=== PATIENT | female | born 1965 | race Caucasian/White ===

== ENCOUNTER 2016-11-02 05:08 | Inpatient (IN) | payer MEDICAID, OTHER ==
[2016-11-02] VITALS (20 sets, daily range): BP systolic 119–220; BP diastolic 59–117; PULSE 73–120; RESP 16–28; TEMP 97.7–97.9; O2SAT 96–100
[~2016-11-02] VITALS: Ht 162.6 cm; Wt 72.0 kg
[~2016-11-02 05:08] MED LIST: ALBU17I INH; ALBU2.5I INH; CARD30TA PO; LEVA750T PO; MONT10TA2 PO; PRED10 PO
--- NOTE | 2016-11-02 05:23 | PD ---
HPI Chief Complaint: Respiratory Symptoms Time Seen by Provider: 05:11 Travel History International Travel<30 days: No Contact w/Intl Traveler<30days: No Traveled to known affect area: No History of Present Illness HPI The patient is a 51-year-old female who presents emergency department via EMS for shortness of breath. The patient states she developed sudden onset of shortness of breath approximately 3 hours prior to arrival. The patient states she has a long-standing history of asthma, is been intubated approximately 4 times, was last admitted for asthma 5 years ago. The patient states she had prednisone at home earlier today, has some shortness of breath, therefore, took prednisone 20 mg orally. Patient is also been using nebulizers at home, however, her symptoms are progressing. EMS provided the patient Solu- Medrol 125 mg intravenously and albuterol nebulizers 3 times prior to arrival. However, patient continues complaining of shortness of breath, chest tightness, and had noticeable retractions. The patient does not currently have a primary physician. Patient states she lost her physician after they took her disability for asthma away. The patient does complain of chest tightness, denies any chest pain. The patient denies any nausea, vomiting, Toradol pain. She denies any associated fever, chills, or sweats. Patient does have a history of asthma was taking Benicar, however, no longer takes her medications could she does not have a physician. The patient quit smoking 5 years ago. PFSH Past Medical History Narrative Medical Hypertension, asthma Past Surgical History Narrative Surgical Partial hysterectomy Social History Alcohol Use: No Tobacco Use: No (quit 5 years ago) Substance Use: No Allergies-Medications (Allergen,Severity, Reaction): Coded Allergies: Penicillin (Verified Allergy, Severe, 11/02/16) Reported Meds & Prescriptions Reported Meds & Active Scripts Active Reported Resp: Albuterol 2.5 Mg/3 Ml Neb (Albuterol Sulfate) 2.5 Mg/3 Ml Nebu 2.5 Mg INH Q4HPRN PRN SOB Levaquin 750 Mg Tab (Levofloxacin) 750 Mg Tab 750 Mg PO DAILY Deltasone 10 Mg Tab (Prednisone) 10 Mg Tab 10 Mg PO DAILY 40MG PO X2 DAYS, 20MG X2 DAYS, 10MG X2 DAYS Singulair (Montelukast Sodium) 10 Mg Tab 10 Mg PO DAILY Proventil Mdi (Albuterol Sulfate) 17 Gm Aero 2 Puff INH Q4HPRN PRN SOB Cardizem (Diltiazem HCl) 30 Mg Tab 30 Mg PO Q8 Review of Systems Except as stated in HPI: all other systems reviewed are Neg General / Constitutional: No: Fever, Chills HENT: No: Lightheadedness Cardiovascular: No: Chest Pain or Discomfort Respiratory: Positive: Shortness of Breath, Wheezing Gastrointestinal: No: Nausea, Vomiting, Abdominal Pain Musculoskeletal: No: Weakness Neurologic: No: Dizziness Physical Exam Narrative GENERAL: Awake, alert, 51-year-old female who appears her stated age and is in moderate respiratory distress with noticeable retractions. SKIN: Warm and dry. HEAD: Atraumatic. Normocephalic. EYES: Pupils equal and round. No scleral icterus. No injection or drainage. ENT: Mild nasal flaring. NECK: Trachea midline. No JVD. CARDIOVASCULAR: Regular, tachycardic with a heart rate of 120. RESPIRATORY: Tachypnea with a respiratory rate of 26. Noticeable supraclavicular retractions. Audible wheezing all 4 lung duenas. GASTROINTESTINAL: Abdomen soft, non-tender, nondistended. No rebound tenderness. MUSCULOSKELETAL: No obvious deformities. No clubbing. No cyanosis. No edema. NEUROLOGICAL: Awake and alert. No obvious cranial nerve deficits. Motor grossly within normal limits. Normal speech. PSYCHIATRIC: Appropriate mood and affect; insight and judgment normal. Data Data Last Documented VS Vital Signs Date Time Temp Pulse Resp B/P Pulse Ox O2 Delivery O2 Flow Rate FiO2 11/02/16 05:45 108 24 139/100 100 BiPAP 40 11/02/16 05:11 97.7 Orders Complete Blood Count With Diff (11/02/16 05:16) Comprehensive Metabolic Panel (11/02/16 05:16) B-Type Natriuretic Peptide (11/02/16 05:16) Magnesium (Mg) (11/02/16 05:16) Iv Access Insert/Monitor (11/02/16 05:16) Electrocardiogram (11/02/16 05:16) Ecg Monitoring (11/02/16 05:16) Oximetry (11/02/16 05:16) Oxygen Administration (11/02/16 05:16) Chest, Single Ap (11/02/16 05:16) Sodium Chloride 0.9% Flush (Ns Flush) (11/02/16 05:30) Albuterol-Ipratropium Neb (Duoneb Neb) (11/02/16 05:30) Resp Bipap / Cpap Non Invas Vt (11/02/16 05:16) Resp Blood Gas Venous (11/02/16 ) Enalaprilat Inj (Vasotec Inj) (11/02/16 05:30) Sodium Chlorid 0.9% 500 Ml Inj (Ns 500 M (11/02/16 05:30) Blood Gas Venous (Vbg) (11/02/16 05:30) Labs Laboratory Tests Test 11/02/16 11/02/16 05:20 05:30 White Blood Count 15.8 TH/MM3 Red Blood Count 5.10 MIL/MM3 Hemoglobin 15.4 GM/DL Hematocrit 45.8 % Mean Corpuscular Volume 89.9 FL Mean Corpuscular Hemoglobin 30.3 PG Mean Corpuscular Hemoglobin 33.7 % Concent Red Cell Distribution Width 13.4 % Platelet Count 302 TH/MM3 Mean Platelet Volume 8.3 FL Neutrophils (%) (Auto) 53.5 % Lymphocytes (%) (Auto) 32.6 % Monocytes (%) (Auto) 6.5 % Eosinophils (%) (Auto) 7.1 % Basophils (%) (Auto) 0.3 % Neutrophils # (Auto) 8.4 TH/MM3 Lymphocytes # (Auto) 5.1 TH/MM3 Monocytes # (Auto) 1.0 TH/MM3 Eosinophils # (Auto) 1.1 TH/MM3 Basophils # (Auto) 0.1 TH/MM3 CBC Comment AUTO DIFF Differential Total Cells 100 Counted Neutrophils % (Manual) 64 % Lymphocytes % 21 % Monocytes % 5 % Eosinophils % 8 % Neutrophils # (Manual) 10.4 TH/MM3 Metamyelocytes 2 % Differential Comment FINAL DIFF MANUAL Platelet Estimate NORMAL Platelet Morphology Comment NORMAL Red Cell Morphology Comment NORMAL Blood Gas Puncture Site IV LINE Blood Gas Patient Temperature 98.6 Venous Blood pH 7.42 Venous Blood Partial Pressure 40 mmHg CO2 Venous Blood Partial Pressure 75 mmHg O2 Venous Blood HCO3 25 mmol/L Venous Blood Oxygen Saturation 92 % Venous Blood Oxygen Content 20.2 Vol % Venous Blood Base Excess 0.8 mmol/L Oxygen Delivery Device BiPAP Blood Gas Ventilator Setting IPAP12/EPAP5 Blood Gas Inspired Oxygen 40 % MDM Medical Decision Making Medical Screen Exam Complete: Yes Emergency Medical Condition: Yes Medical Record Reviewed: Yes Interpretation(s) EKG reveals sinus tachycardia with a heart rate 111. Chest x-ray reveals normal examination Laboratory Tests Test 11/02/16 11/02/16 05:20 05:30 White Blood Count 15.8 TH/MM3 Red Blood Count 5.10 MIL/MM3 Hemoglobin 15.4 GM/DL Hematocrit 45.8 % Mean Corpuscular Volume 89.9 FL Mean Corpuscular Hemoglobin 30.3 PG Mean Corpuscular Hemoglobin 33.7 % Concent Red Cell Distribution Width 13.4 % Platelet Count 302 TH/MM3 Mean Platelet Volume 8.3 FL Neutrophils (%) (Auto) 53.5 % Lymphocytes (%) (Auto) 32.6 % Monocytes (%) (Auto) 6.5 % Eosinophils (%) (Auto) 7.1 % Basophils (%) (Auto) 0.3 % Neutrophils # (Auto) 8.4 TH/MM3 Lymphocytes # (Auto) 5.1 TH/MM3 Monocytes # (Auto) 1.0 TH/MM3 Eosinophils # (Auto) 1.1 TH/MM3 Basophils # (Auto) 0.1 TH/MM3 CBC Comment AUTO DIFF Differential Total Cells 100 Counted Neutrophils % (Manual) 64 % Lymphocytes % 21 % Monocytes % 5 % Eosinophils % 8 % Neutrophils # (Manual) 10.4 TH/MM3 Metamyelocytes 2 % Differential Comment FINAL DIFF MANUAL Platelet Estimate NORMAL Platelet Morphology Comment NORMAL Red Cell Morphology Comment NORMAL Blood Gas Puncture Site IV LINE Blood Gas Patient Temperature 98.6 Venous Blood pH 7.42 Venous Blood Partial Pressure 40 mmHg CO2 Venous Blood Partial Pressure 75 mmHg O2 Venous Blood HCO3 25 mmol/L Venous Blood Oxygen Saturation 92 % Venous Blood Oxygen Content 20.2 Vol % Venous Blood Base Excess 0.8 mmol/L Oxygen Delivery Device BiPAP Blood Gas Ventilator Setting IPAP12/EPAP5 Blood Gas Inspired Oxygen 40 % Differential Diagnosis Differential diagnoses includes asthma exacerbation, pneumothorax, pleural effusion, pulmonary embolism, pneumonia, bronchitis, ACS. Narrative Course IV was established, labs are drawn and sent, and the patient was placed on cardiac telemetry monitoring and continuous pulse oximetry monitoring. The patient was placed on BiPAP 12/5 at 40%. The patient received Solu-Medrol and 3 albuterol nebulizers prior to arrival, therefore, was administered 2 more duo nebs. Patient had noticeable tachypnea, retractions, therefore, was placed on BiPAP. The patient is at high risk secondary to previous four intubations. The patient was placed on BiPAP, has significant improvement of her symptoms. VBG is unremarkable, no obvious PCO2 retention, her PCO2 is 39.5. Patient will be admitted to [facility] on BiPAP. The on-call medical service was paged for remission. The patient's white count was mildly elevated, however, the patient is afebrile. Laboratory states that the patient's CMP was hemolyzed, therefore , was a re-collect. A call was placed to the on-call medical service for admission. The patient will be admitted. Critical Care Narrative Aggregate critical care time was 35 minutes. Time to perform other separately billable procedures was not included in the critical care time. My time did not include minutes spent treating any other patients simultaneously or on activities that did not directly contribute to the patient's treatment. The services I provided to this patient were to treat and/or prevent clinically significant deterioration that could result in: Anoxia, hypoxia, arrhythmia, respiratory arrest, . I provided critical care services requiring my management, as noted below: Chart data review, documentation time, medication orders and management, vital sign assessments/reviewing monitor data, ordering and reviewing lab tests, ordering and interpreting/reviewing x-rays and diagnostic studies, care of the patient and discussion of the patient with the admitting physicians. Physician Communication Physician Communication [facility] were paged for admission. I discussed the patient with Dr. Nye who agrees with admission. Diagnosis Primary Impression: Status asthmaticus Qualified Code: J45.902 - Asthma with status asthmaticus, unspecified asthma severity Admitting Information Admitting Physician Requests: Admit Condition: Stable Isaias Alexis MD Nov 02, 2016 05:23
[2016-11-02] MEDS: RESP: ALBUTEROL 2.5 MG/IPRATROPIUM 0.5 MG NEB (SCH) INH (05:29)
[2016-11-02] MEDS ORDERED: SODIUM CHLORIDE 0.9% FLUSH 5 ML FLUSH IVF PRN (05:30)
[2016-11-02] MEDS ORDERED: SODIUM CHLORID 0.9% 500 ML INJ 500 ML IV ONE (05:30)
[2016-11-02] MEDS ORDERED: ENALAPRILAT 1.25 MG/ML VIAL IV PUSH ONE (05:30)
[2016-11-02 05:41] LABS: BLOOD GAS VENOUS BASE EXCESS 0.8 mmol/L (-2-2); BLOOD GAS VENOUS HCO3 25 mmol/L (22-26); BLOOD GAS VENOUS O2 CONTENT 20.2 Vol % (9.0-17.0); BLOOD GAS VENOUS O2 HGB SAT 92 % (70-76); BLOOD GAS VENOUS PCO2 40 mmHg (44-48); BLOOD GAS VENOUS PO2 75 mmHg (35-40); BLOOD GAS VENOUS pH 7.42 (7.360-7.400); CRITICAL VALUE NO; DRAW SITE IV LINE; FIO2 40 %; OXYGEN DEVICE BiPAP; STAT YES; TEMP CORR TO 98.6; VENT SETTINGS IPAP12/EPAP5
[2016-11-02 05:57] LABS: AUTOMATED NEUTROPHIL # 8.4 TH/MM3 (1.8-7.7); BASOPHIL # 0.1 TH/MM3 (0-0.2); BASOPHIL % 0.3 % (0.0-2.0); EOSINOPHIL # 1.1 TH/MM3 (0-0.4); EOSINOPHIL % 7.1 % (0.0-4.0); HEMATOCRIT 45.8 % (35.0-46.0); LYMPH % 32.6 % (9.0-44.0); LYMPHOCYTE # 5.1 TH/MM3 (1.0-4.8); MEAN CELL VOLUME 89.9 FL (80.0-100.0); MEAN CORPUSCULAR HEMOGLOBIN 30.3 PG (27.0-34.0); MEAN CORPUSCULAR HGB CONC 33.7 % (32.0-36.0); MONO % 6.5 % (0.0-8.0); NEUT % 53.5 % (16.0-70.0); PLATELET COUNT 302 TH/MM3 (150-450); RED CELL DISTRIBUTION WIDTH 13.4 % (11.6-17.2); WHITE BLOOD COUNT 15.8 TH/MM3 (4.0-11.0)
[2016-11-02 06:01] LABS: HEMO FLAGS AUTO DIFF
[2016-11-02 06:30] LABS: EOSINOPHILS 8 % (0-4); METAMYELOCYTES 2 % (0-1); NEUTROPHIL # MANUAL DIFF 10.4 TH/MM3 (1.8-7.7); POLYS (SEG NEUTROPHILS) 64 % (16-70); WBC DIFF SAMPLE 100
[2016-11-02 06:31] LABS: PLATELET ESTIMATE SMEAR NORMAL (NORMAL); PLATELET MORPHOLOGY NORMAL (NORMAL); SCAN/DIFF FINAL DIFF MANUAL
--- NOTE | 2016-11-02 06:33 | RADRPT ---
EXAM DATE/TIME: 11/02/2016 05:55 [facility] COMPARISON: CHEST SINGLE AP, July 29, 2012, 5:36. INDICATIONS : Shortness of breath. MEDICAL HISTORY : Asthma SURGICAL HISTORY : None. ENCOUNTER: Initial ACUITY: 1 day PAIN SCORE: 0/10 LOCATION: Bilateral chest FINDINGS: A single view of the chest demonstrates the lungs to be symmetrically aerated without evidence of mas s, infiltrate or effusion. The cardiomediastinal contours are unremarkable. Osseous structures are intact. CONCLUSION: Normal examination. Kannan Ma MD on November 02, 2016 at 6:31 Board Certified Radiologist. This report was verified electronically.
[2016-11-02] MEDS ORDERED: RESP: ALBUTEROL 2.5 MG/3 ML NEB (PRN) NEB (07:00)
[2016-11-02] MEDS ORDERED: ACETAMINOPHEN/HYDROcodone 325 MG/5 MG TAB PO PRN (07:00)
[2016-11-02] MEDS ORDERED: ONDANSETRON HCL 4 MG/2 ML VIAL IVP PRN (07:00)
[2016-11-02] MEDS ORDERED: BISACODYL 10 MG SUPP PR PRN (07:00)
[2016-11-02] MEDS ORDERED: SODIUM CHLORIDE 0.9% FLUSH 5 ML FLUSH FLUSH PRN (07:00)
[2016-11-02] MEDS ORDERED: ACETAMINOPHEN 325 MG TAB PO PRN (07:00)
[2016-11-02 07:11] LABS: ALT (GPT) 24 U/L (10-53); ANION GAP 10 MEQ/L (5-15); AST (GOT) 17 U/L (15-37); BICARBONATE 25.2 MEQ/L (21.0-32.0); BLOOD UREA NITROGEN 15 MG/DL (7-18); CHLORIDE 107 MEQ/L (98-107); GLOMERULAR FILTRATION RATE 72 ML/MIN (>89); MAGNESIUM 2.1 MG/DL (1.5-2.5); POTASSIUM 3.9 MEQ/L (3.5-5.1); SODIUM (NA) 142 MEQ/L (136-145)
[2016-11-02 07:13] LABS: ALKALINE PHOSPHATASE 53 U/L (45-117); TOTAL BILIRUBIN ADULT 0.4 MG/DL (0.2-1.0)
[2016-11-02] MEDS: RESP: ALBUTEROL 2.5 MG/3 ML NEB (SCH) NEB ×4 (07:30→19:47)
[2016-11-02] MEDS: ACETAMINOPHEN/HYDROcodone 325 MG/10 MG TAB PO PRN ×2 (07:33→21:32)
--- NOTE | 2016-11-02 08:50 | HHI.HP ---
[facility] No Primary Care Physician Admission Diagnosis status asthmaticus, failed outpatient therapy Diagnoses: Chief Complaint: Shortness of breath. Travel History International Travel<30 Days: No Contact w/Intl Traveler <30 Da: No Traveled to Known Affected Are: No Sepsis Criteria SIRS Criteria (2 or more): Heart rate over 90, RR > 20 or PaCO2 < 32, WBC > 58453, < 4000 or > 10% bands History of Present Illness Ms. Beard is a 51 year old female with a history of asthma who presented to the ED on 11/02/2016 due to shortness of breath that started about 3 hours prior to her presentation to the ED. She took some prednisone 20mg Qday and used nebulizer at home without much improvement of her symptoms. EMS provided solu- medrol 125mg IV and Albuterol neb 3 times prior to arrival. She complains of chest tightness but denies any nausea, vomiting, fever or chills. She does reports some non-productive cough. Denies any changes in her bowel or bladder habits. Review of Systems ROS Limitations: Other (Negative except as noted in the HPI. ) Past Family Social History Past Medical History Hypertension, Asthma, Anxiety. Past Surgical History Partial hysterectomy Reported Medications Resp: Albuterol 2.5 Mg/3 Ml Neb (Albuterol Sulfate) 2.5 Mg/3 Ml Nebu 2.5 Mg INH Q4HPRN PRN SOB Levaquin 750 Mg Tab (Levofloxacin) 750 Mg Tab 750 Mg PO DAILY Deltasone 10 Mg Tab (Prednisone) 10 Mg Tab 10 Mg PO DAILY 40MG PO X2 DAYS, 20MG X2 DAYS, 10MG X2 DAYS Singulair (Montelukast Sodium) 10 Mg Tab 10 Mg PO DAILY Proventil Mdi (Albuterol Sulfate) 17 Gm Aero 2 Puff INH Q4HPRN PRN SOB Cardizem (Diltiazem HCl) 30 Mg Tab 30 Mg PO Q8 Allergies: Coded Allergies: Penicillin (Verified Allergy, Severe, 11/02/16) Family History Patient was adopted. Social History Quit smoking 5 years ago. Denies using alcohol or illicit drugs. Physical Exam Vital Signs Vital Signs Date Time Temp Pulse Resp B/P Pulse Ox O2 Delivery O2 Flow Rate FiO2 11/02/16 07:32 98 30 11/02/16 07:29 104 28 149/82 98 BiPAP 11/02/16 05:45 108 24 139/100 100 BiPAP 40 11/02/16 05:30 100 40 11/02/16 05:21 100 BiPAP 40 11/02/16 05:11 97.7 120 26 220/117 99 Physical Exam GENERAL: This is a well-nourished, well-developed patient, in no apparent distress. On BiPAP mask. SKIN: No rashes, ecchymoses or lesions. Warm and dry. HEAD: Atraumatic. Normocephalic. No temporal or scalp tenderness. EYES: Pupils equal round and reactive. No injection or drainage. ENT: Nose without bleeding, purulent drainage or septal hematoma. Airway patent. NECK: Trachea midline. No lymphadenopathy. Supple, nontender, no meningeal signs. CARDIOVASCULAR: Regular rhythm, tachycardic without murmurs, gallops, or rubs. No JVD. RESPIRATORY: Diffusely coarse breath sounds, with diffuse wheezing. Moderate air entry. GASTROINTESTINAL: Abdomen soft, non-tender, nondistended. No guarding. MUSCULOSKELETAL: Extremities without clubbing, cyanosis, or edema. NEUROLOGICAL: Awake and alert. Cranial nerves II through XII intact. No focal neurological deficits. Normal speech. Laboratory Laboratory Tests Test 11/02/16 11/02/16 11/02/16 05:20 05:30 06:40 White Blood Count 15.8 Red Blood Count 5.10 Hemoglobin 15.4 Hematocrit 45.8 Mean Corpuscular Volume 89.9 Mean Corpuscular Hemoglobin 30.3 Mean Corpuscular Hemoglobin 33.7 Concent Red Cell Distribution Width 13.4 Platelet Count 302 Mean Platelet Volume 8.3 Neutrophils (%) (Auto) 53.5 Lymphocytes (%) (Auto) 32.6 Monocytes (%) (Auto) 6.5 Eosinophils (%) (Auto) 7.1 Basophils (%) (Auto) 0.3 Neutrophils # (Auto) 8.4 Lymphocytes # (Auto) 5.1 Monocytes # (Auto) 1.0 Eosinophils # (Auto) 1.1 Basophils # (Auto) 0.1 CBC Comment AUTO DIFF Differential Total Cells 100 Counted Neutrophils % (Manual) 64 Lymphocytes % 21 Monocytes % 5 Eosinophils % 8 Neutrophils # (Manual) 10.4 Metamyelocytes 2 Differential Comment FINAL DIFF MANUAL Platelet Estimate NORMAL Platelet Morphology Comment NORMAL Red Cell Morphology Comment NORMAL B-Type Natriuretic Peptide 5 Blood Gas Puncture Site IV LINE Blood Gas Patient Temperature 98.6 Venous Blood pH 7.42 Venous Blood Partial Pressure 40 CO2 Venous Blood Partial Pressure 75 O2 Venous Blood HCO3 25 Venous Blood Oxygen Saturation 92 Venous Blood Oxygen Content 20.2 Venous Blood Base Excess 0.8 Oxygen Delivery Device BiPAP Blood Gas Ventilator Setting IPAP12/EPAP5 Blood Gas Inspired Oxygen 40 Sodium Level 142 Potassium Level 3.9 Chloride Level 107 Carbon Dioxide Level 25.2 Anion Gap 10 Blood Urea Nitrogen 15 Creatinine 0.84 Estimat Glomerular Filtration 72 Rate Random Glucose 119 Calcium Level 8.6 Magnesium Level 2.1 Total Bilirubin 0.4 Aspartate Amino Transf 17 (AST/SGOT) Alanine Aminotransferase 24 (ALT/SGPT) Alkaline Phosphatase 53 Total Protein 6.4 Albumin 3.6 Result Diagram: 11/02/16 0520 11/02/16 0640 Imaging Last Impressions Chest X-Ray 11/02/16 0516 Signed Impressions: Service Date/Time: Wednesday, November 02, 2016 05:55 - CONCLUSION: Normal examination. Kannan Ma MD Assessment and Plan Problem List: (1) Acute asthma exacerbation ICD Code: J45.901 Status: Acute (2) Hypertension ICD Code: I10 Status: Acute (3) Anxiety and depression ICD Code: F41.9 Status: Acute Assessment and Plan Ms. Beard is a pleasant 51 year old female with a history of asthma, hypertension, anxiety/depression who presents to the emergency department today due to shortness of breath despite. Patient received breathing treatments as well as steroids in route to the hospital without much improvement. Patient was started on BiPAP in the emergency department. - Acute asthma exacerbation - Continue albuterol nebulizer - Continue Solu-Medrol 40 mg IV every 6 hours, Symbicort 1604.5 mg 2 puffs every 12 hours. - BiPAP when necessary. Supplemental O2 To keep O2 sat above 90%. - Hypertension - continue losartan 20 mg by mouth daily - Hypothyroidism - continue levothyroxine 25 g by mouth daily. - Anxiety/depression - continue Xanax 0.25 mg by mouth twice a day when necessary, Prozac 40 mg by mouth daily. Full code. SCDs. Physician Certification 2 Midnight Certification Type: Admission for Inpatient Services Order for Inpatient Services The services are ordered in accordance with Medicare regulations or non- Medicare payer requirements, as applicable. In the case of services not specified as inpatient-only, they are appropriately provided as inpatient services in accordance with the 2-midnight benchmark. Estimated LOS (days): 2 days is the estimated time the patient will need to remain in the hospital, assuming treatment plan goals are met and no additional complications. Post-Hospital Plan: Home Sofia Apple DO Nov 02, 2016 08:50
[2016-11-02] MEDS: methylPREDNISolone SOD SUCC 40 MG/1 ML VIAL IV PUSH SCH ×2 (11:17→17:34)
[2016-11-02] MEDS: guaiFENesin E.R. 600 MG TAB PO SCH ×2 (11:17→21:28)
[2016-11-02] MEDS: BUDESONIDE-FORMOTEROL 160/4.5 MCG INHALER INH SCH ×2 (11:18→21:28)
[2016-11-02] MEDS: SODIUM CHLORIDE 0.9% FLUSH 5 ML FLUSH FLUSH SCH ×2 (11:18→21:29)
[2016-11-02] MEDS ORDERED: SYMB160A INH (12:29)
[2016-11-02] MEDS ORDERED: SYNT25TA PO (12:30)
[2016-11-02] MEDS ORDERED: BENI20TA5 PO (12:30)
[2016-11-02] MEDS ORDERED: ALPR.25 PO (12:32)
[2016-11-02] MEDS ORDERED: FLUT1INH INH (12:32)
[2016-11-02] MEDS ORDERED: ALBUAER3 INH (12:32)
[2016-11-02] MEDS ORDERED: ZOLO50TA PO (12:35)
[2016-11-02] MEDS ORDERED: PROZ40CA PO (12:35)
[2016-11-02] MEDS ORDERED: ALBU0.08 NEB (12:37)
[2016-11-02] MEDS ORDERED: LOSARTAN 50 MG TAB PO SCH (13:45)
[2016-11-02] MEDS ORDERED: ALPRAZolam 0.25 MG TAB PO PRN (13:45)
--- NOTE | 2016-11-02 14:35 | EKG ---
Date Performed: 11/02/2016 Time Performed: 05:29:06 PTAGE: 51 years EKG: SINUS TACHYCARDIA ABNORMAL RHYTHM ECG PREVIOUS TRACING : 07/28/2012 17.20 No significant change from previous tracing noted. DOCTOR: Angel Crabtree Interpretating Date/Time 11/02/2016 14:32:46
[2016-11-03] VITALS (13 sets, daily range): BP systolic 139–168; BP diastolic 82–96; PULSE 74–94; RESP 18–24; TEMP 97.8–98.3; O2SAT 96–98
[2016-11-03] MEDS: ACETAMINOPHEN/HYDROcodone 325 MG/10 MG TAB PO PRN ×3 (04:15→12:40)
[2016-11-03] MEDS: methylPREDNISolone SOD SUCC 40 MG/1 ML VIAL IV PUSH SCH ×3 (05:50→12:40)
[2016-11-03] MEDS ORDERED: LEVOTHYROXINE SODIUM 25 MCG TAB PO SCH (06:00)
[2016-11-03] MEDS: RESP: ALBUTEROL 2.5 MG/3 ML NEB (SCH) NEB ×2 (07:49→11:57)
[2016-11-03] MEDS: BUDESONIDE-FORMOTEROL 160/4.5 MCG INHALER INH SCH (08:50)
[2016-11-03] MEDS: guaiFENesin E.R. 600 MG TAB PO SCH (08:51)
[2016-11-03] MEDS: SODIUM CHLORIDE 0.9% FLUSH 5 ML FLUSH FLUSH SCH (08:51)
[2016-11-03] MEDS ORDERED: LOSARTAN 50 MG TAB PO SCH (09:00)
[2016-11-03] MEDS ORDERED: FLUoxetine HCL 20 MG CAP PO SCH (09:00)
[2016-11-03] MEDS ORDERED: INFLUENZA VIRUS VACCINE (QUADRIVALENT) 0.5 ML SYR IM ONE (10:00)
[2016-11-03 11:48] LABS: AUTOMATED NEUTROPHIL # 23.6 TH/MM3 (1.8-7.7); BASOPHIL % 0.1 % (0.0-2.0); HEMATOCRIT 47.5 % (35.0-46.0); HEMO FLAGS DIFF FINAL; LYMPH % 2.4 % (9.0-44.0); LYMPHOCYTE # 0.6 TH/MM3 (1.0-4.8); MEAN CELL VOLUME 89.7 FL (80.0-100.0); MEAN CORPUSCULAR HEMOGLOBIN 29.8 PG (27.0-34.0); MEAN CORPUSCULAR HGB CONC 33.3 % (32.0-36.0); MONO % 1.8 % (0.0-8.0); NEUT % 95.7 % (16.0-70.0); PLATELET COUNT 325 TH/MM3 (150-450); RED CELL DISTRIBUTION WIDTH 13.7 % (11.6-17.2); WHITE BLOOD COUNT 24.6 TH/MM3 (4.0-11.0)
[2016-11-03 12:13] LABS: ALKALINE PHOSPHATASE 53 U/L (45-117); ALT (GPT) 25 U/L (10-53); ANION GAP 8 MEQ/L (5-15); AST (GOT) 13 U/L (15-37); BICARBONATE 27.7 MEQ/L (21.0-32.0); BLOOD UREA NITROGEN 14 MG/DL (7-18); CHLORIDE 104 MEQ/L (98-107); GLOMERULAR FILTRATION RATE 81 ML/MIN (>89); POTASSIUM 4.4 MEQ/L (3.5-5.1); SODIUM (NA) 140 MEQ/L (136-145); TOTAL BILIRUBIN ADULT 0.7 MG/DL (0.2-1.0)
[2016-11-03] MEDS ORDERED: PRED20 PO (12:18)
[2016-11-03] MEDS ORDERED: ALBU0.08 NEB (12:18)
[2016-11-03] MEDS ORDERED: SYMB160A INH (12:18)
[2016-11-03] MEDS ORDERED: ALBUAER3 INH (12:18)
--- NOTE | 2016-11-03 12:20 | HHI.PR ---
Subjective Remarks Follow up for acute asthma exacerbation. Patient is doing much better. Not requiring any supplemental O2. I walked patient in the room and in the hallway. She ambulates well without any shortness of breath. At the end of ambulation, her O2 sat remained above 92%. Denies any fever, chills. Objective Vitals Vital Signs Date Time Temp Pulse Resp B/P Pulse Ox O2 Delivery O2 Flow Rate FiO2 11/03/16 11:59 97 21 11/03/16 11:00 74 11/03/16 11:00 97.8 82 18 167/94 98 11/03/16 11:00 96 Room Air 11/03/16 10:32 74 11/03/16 09:00 87 11/03/16 08:00 85 11/03/16 07:15 77 11/03/16 07:15 96 Room Air 11/03/16 07:15 98.0 85 18 150/85 96 11/03/16 06:00 74 11/03/16 05:00 76 11/03/16 04:00 97.9 86 18 168/96 97 11/03/16 04:00 94 11/03/16 04:00 97 Room Air 11/03/16 03:00 81 11/03/16 02:00 85 11/03/16 01:00 79 11/03/16 00:00 91 11/03/16 00:00 98.3 94 24 139/82 97 11/03/16 00:00 98 Nasal Cannula 4.00 11/02/16 23:00 87 11/02/16 22:00 108 11/02/16 21:00 105 11/02/16 20:00 97 Nasal Cannula 4.00 11/02/16 20:00 97.9 100 24 153/85 97 11/02/16 20:00 99 11/02/16 19:47 98 Nasal Cannula 2.00 11/02/16 19:00 99 11/02/16 18:00 107 11/02/16 17:00 106 11/02/16 16:00 102 11/02/16 15:03 97.8 98 26 152/92 96 11/02/16 15:03 107 11/02/16 15:00 98 Nasal Cannula 4.00 11/02/16 12:35 102 22 154/84 98 Nasal Cannula 4 11/02/16 12:35 97 Nasal Cannula 4 I/O 11/02/16 11/02/16 11/02/16 11/03/16 11/03/16 11/03/16 07:00 15:00 23:00 07:00 15:00 23:00 Intake Total 240 ml 240 ml Output Total 200 ml 1000 ml Balance 40 ml -760 ml Intake Oral 240 ml 240 ml Output Urine Total 200 ml 1000 ml # Bowel Movements 1 0 Result Diagram: 11/03/16 1106 11/03/16 1106 Imaging Last Impressions Chest X-Ray 11/02/16 0516 Signed Impressions: Service Date/Time: Wednesday, November 02, 2016 05:55 - CONCLUSION: Normal examination. Kannan Ma MD Objective Remarks GENERAL: Alert, Oriented x 3, NAD. SKIN: Warm and dry. HEAD: Normocephalic. EYES: No scleral icterus. No injection or drainage. NECK: Supple, trachea midline. No JVD or lymphadenopathy. CARDIOVASCULAR: Regular rate and rhythm without murmurs, gallops, or rubs. RESPIRATORY: Moderate air entry. Some scattered wheezes present but improved. GASTROINTESTINAL: Abdomen soft, non-tender, nondistended. MUSCULOSKELETAL: No cyanosis, or edema. BACK: Nontender without obvious deformity. No CVA tenderness. Procedures None. A/P Problem List: (1) Acute asthma exacerbation ICD Code: J45.901 Status: Acute (2) Hypertension ICD Code: I10 Status: Acute (3) Anxiety and depression ICD Code: F41.9 Status: Acute Assessment and Plan Ms. Beard is a pleasant 51 year old female with a history of asthma, hypertension, anxiety/depression who presents to the emergency department today due to shortness of breath despite. Patient received breathing treatments as well as steroids in route to the hospital without much improvement. Patient was started on BiPAP in the emergency department. - Acute asthma exacerbation - Continue albuterol nebulizer - Continue Solu-Medrol 40 mg IV every 6 hours, Symbicort 1604.5 mg 2 puffs every 12 hours. - Patient is doing well on room air. - Hypertension - continue losartan 20 mg by mouth daily - Hypothyroidism - continue levothyroxine 25 g by mouth daily. - Anxiety/depression - continue Xanax 0.25 mg by mouth twice a day when necessary, Prozac 40 mg by mouth daily. Full code. SCDs. Discharge patient to home Condition on discharge: Improved Regular Diet as tolerated Ad Daily activity Rx written: - Albuterol 8.5 gm INH 2 puff QID PRN - Symbicort 2 puff INH QID - Albuterol Neb 2.5mg #60 - Prednisone 20mg BID #10 Follow-up with primary care physician within one week. Total time spent over 30 minutes including interview, walking patient, examining patient, coordinating with disease case manager rn regarding medications/ patients assistance. medical center manager discussed with senior financial reporting analyst. Patient apparently has medicaid share of cost which she has met for October. She was given contact info of Dr. Ruiz for follow up. Sofia Apple DO Nov 03, 2016 12:20
== END 2016-11-03 14:07 | disposition home or self-care (01) | DRG 203 ==
LOC: NEPE 05:08 → NEDA 06:56 → HCPC 14:52
PROVIDERS: ADMIT Hospitalist; ATTEND Hospitalist
DX: J45.902 Unspecified asthma with status asthmaticus (principal); I10 Essential (primary) hypertension; E03.9 Hypothyroidism, unspecified; F41.9 Anxiety disorder, unspecified; Z87.891 Personal history of nicotine dependence
CPT/HCPCS: 71010; 80053; 82805; 83735; 83880; 85007; 85025; 85027; 93005; 94002; 94640; 94664; J2920; J7040; J7613